=== PATIENT | male | born 1980 | race Caucasian/White ===

== ENCOUNTER 2020-11-24 18:47 | Emergency (ER) | payer OTHER ==
[~2020-11-24] VITALS: Ht 180.3 cm; Wt 220.4 kg
[2020-11-24 20:06] LABS: BILIRUBIN Negative (Negative); BLOOD 3+ (Negative); CLARITY Clear (Clear); COLOR Yellow (Yellow); GLUCOSE Negative (Negative); KETONE Trace (Negative); LEUKO ESTERASE Trace (Negative); NITRITE Negative (Negative); PH 5.5 (4.5-8.0)
[2020-11-24 20:18] LABS: RBC TNTC rbc/hpf (0-2)
[2020-11-24 20:19] LABS: BACTERIA TRACE
[2020-11-24 21:03] LABS: BASO % 0.2 % (0.0-1.0); EOS % 0.5 % (1.0-4.0); HEMATOCRIT 45.6 % (42.0-52.0); LYMPH # 1.2 10*3/uL (1.3-4.4); MEAN CELL VOLUME 93.1 fl (80.0-94.0); MEAN CORPUSCULAR HGB 30.8 pg (27.0-31.0); MEAN CORPUSCULAR HGB CONC 33.1 g/dl (33.0-37.0); MEAN PLATELET VOLUME 9.4 fl (9.6-12.3); MONO # 0.6 10*3/uL (0.1-1.0); MONO % 13.5 % (3.0-9.0); NEUT # 2.3 10*3/uL (2.3-7.9); NEUT % 55.8 % (47.0-73.0); PLATELET COUNT AUTOMATED 173 10*3/uL (130-400); RED CELL DISTRI WIDTH 12.4 % (0-14.5); WHITE BLOOD COUNT 4.1 10*3/uL (4.8-10.8)
[2020-11-24 21:15] LABS: ALBUMIN 3.5 gm/dl (3.1-4.5); ALKALINE PHOSPHATASE 25 U/L (45-117); BUN 10 mg/dl (7-24); CHLORIDE 103 mmol/L (98-107); CREATININE 0.89 mg/dL (0.70-1.30); LIPASE 39 U/L (73-393); POTASSIUM 4.1 mmol/L (3.5-5.1); SGOT/AST 63 IU/L (3-35); SGPT/ALT 97 U/L (12-78); SODIUM 137 mmol/L (136-145); TOTAL PROTEIN 7.4 gm/dL (6.4-8.2)
[2020-11-24] MEDS ORDERED: SEPTDS PO (23:01)
[2020-11-24] MEDS ORDERED: PROVENTIL HFA6.7 GM INH (23:01)
[2020-11-24] MEDS ORDERED: ZITHROMAX250 MG PO (23:01)
[2020-11-24] MEDS ORDERED: PREDNISONE20 M1 PO (23:01)
== END 2020-11-24 23:42 | disposition home or self-care (01) ==
LOC: ED 18:47
PROVIDERS: Physician Assistant
DX: U07.1 COVID-19 (principal); N39.0 Urinary tract infection, site not specified; J12.82 Pneumonia due to coronavirus disease 2019; Z91.040 Latex allergy status

== ENCOUNTER 2024-01-06 10:55 | Emergency (ER) | payer OTHER ==
[~2024-01-06] VITALS: Ht 180.3 cm; Wt 235.0 kg
[~2024-01-06 10:55] MED LIST: PREDNISONE20 M1 PO; PROVENTIL HFA6.7 GM INH; SEPTDS PO; ZITHROMAX250 MG PO
[2024-01-06] MEDS ORDERED: COZAAR50 M1 PO (11:12)
[2024-01-06] MEDS ORDERED: CYMBALTA30 MG PO (11:13)
[2024-01-06] MEDS ORDERED: AMLODIPINE BESYL5 MG PO (11:13)
[2024-01-06] MEDS ORDERED: XYOSTED100 MG/0.5 SQ (11:14)
[2024-01-06 12:17] LABS: BASO % 0.3 % (0.0-1.0); EOS # 0.1 10*3/uL (0.0-0.4); EOS % 1.8 % (1.0-4.0); HEMATOCRIT 50.3 % (42.0-52.0); LYMPH # 1.5 10*3/uL (1.3-4.4); MEAN CELL VOLUME 96.4 fl (80.0-94.0); MEAN CORPUSCULAR HGB CONC 32.2 g/dl (33.0-37.0); MEAN PLATELET VOLUME 9.1 fl (9.6-12.3); MONO # 0.8 10*3/uL (0.1-1.0); MONO % 10.4 % (3.0-9.0); NEUT # 5.3 10*3/uL (2.3-7.9); NEUT % 68.4 % (47.0-73.0); PLATELET COUNT AUTOMATED 192 10*3/uL (130-400); RED BLOOD COUNT 5.22 10*6/uL (4.50-5.90); RED CELL DISTRI WIDTH 13.3 % (0-14.5); WHITE BLOOD COUNT 7.7 10*3/uL (4.8-10.8)
[2024-01-06 12:39] LABS: ALKALINE PHOSPHATASE 24 U/L (46-116); BUN 9 mg/dl (9-23); CHLORIDE 103 mmol/L (98-107); POTASSIUM 4.6 mmol/L (3.4-5.1); SGPT/ALT 36 U/L (5-49); TOTAL PROTEIN 6.6 gm/dL (6.0-8.0)
[2024-01-06 12:42] LABS: BILIRUBIN Negative (Negative); BLOOD Negative (Negative); CLARITY Clear (Clear); COLOR Yellow (Yellow); GLUCOSE Negative (Negative); KETONE Negative (Negative); LEUKO ESTERASE Negative (Negative); NITRITE Negative (Negative); PH 5.5 (4.5-8.0); SPECIFIC GRAVITY 1.015 (1.001-1.030)
[2024-01-06] MEDS ORDERED: Ketorolac Tromethamine 60 MG/2 ML VIAL IM ONE (12:45)
[2024-01-06 12:49] LABS: RBC 0-2 rbc/hpf (0-2); WBC 0-2 wbc/hpf (0-5)
[2024-01-06] MEDS ORDERED: Cyclobenzaprine Hydrochlorid 10 MG TAB PO ONE (13:45)
[2024-01-06] MEDS ORDERED: CYCLOBENZAPRINE10 MG PO (14:31)
[2024-01-06] MEDS ORDERED: Motrin,Rufen800 MG PO (14:31)
[2024-01-06] MEDS ORDERED: MEDROL DOSEPAK4 MG PO (14:31)
== END 2024-01-06 15:12 | disposition home or self-care (01) ==
LOC: ED 10:55
PROVIDERS: Nurse Practitioner
DX: S33.5XXA Sprain of ligaments of lumbar spine, initial encounter (principal); R16.1 Splenomegaly, not elsewhere classified; R23.8 Other skin changes; Z88.1 Allergy status to other antibiotic agents; Z91.040 Latex allergy status; Z88.8 Allergy status to other drugs, medicaments and biological substances; Z90.49 Acquired absence of other specified parts of digestive tract; X58.XXXA Exposure to other specified factors, initial encounter; Y93.89 Activity, other specified; Y92.89 Other specified places as the place of occurrence of the external cause; Y99.8 Other external cause status

== ENCOUNTER 2024-05-23 12:25 | Emergency (ER) | payer OTHER ==
[~2024-05-23] VITALS: Ht 180.3 cm; Wt 221.4 kg
[~2024-05-23 12:25] MED LIST changes: +AMLODIPINE BESYL5 MG PO; +COZAAR50 M1 PO; +CYCLOBENZAPRINE10 MG PO; +CYMBALTA30 MG PO; +MEDROL DOSEPAK4 MG PO; +Motrin,Rufen800 MG PO; +XYOSTED100 MG/0.5 SQ
[2024-05-23] MEDS ORDERED: CLINDAMYCIN PHO60 ML T (12:39)
[2024-05-23] MEDS ORDERED: [UNRECOGNIZED DRUG - OTHER] T (12:39)
[2024-05-23] MEDS ORDERED: PROBIOTIC250 MG PO (12:40)
[2024-05-23] MEDS ORDERED: DOXYCYCLINE HYC50 MG PO (12:40)
[2024-05-23] MEDS ORDERED: Ketorolac Tromethamine 60 MG/2 ML VIAL IM ONE (13:05)
[2024-05-23] MEDS ORDERED: methylPREDNISolone sod succ 125 MG VIAL IM ONE (13:05)
[2024-05-23] MEDS ORDERED: cefTRIAXone Sodium 1 GM/10 ML SYR IV ONE (13:10)
[2024-05-23] MEDS ORDERED: Cyclobenzaprine Hydrochlorid 10 MG TAB PO ONE (15:05)
[2024-05-23] MEDS ORDERED: Acetaminophen/Hydrocodone Bi 3 TAB PACK PO ONE (15:05)
[2024-05-23] MEDS ORDERED: MELOXICAM7.5 MG PO (15:17)
[2024-05-23] MEDS ORDERED: BUPivacaine 0.25% 10 ML VIAL SC ONE (15:20)
== END 2024-05-23 17:22 | disposition home or self-care (01) ==
LOC: ED 12:25
DX: M48.061 Spinal stenosis, lumbar region without neurogenic claudication (principal); M54.50 Low back pain, unspecified; M79.10 Myalgia, unspecified site; Z88.1 Allergy status to other antibiotic agents; Z90.49 Acquired absence of other specified parts of digestive tract